=== PATIENT | male | born 1955 ===

== ENCOUNTER → 2017-06-05 | Outpatient (CLI) | payer OTHER ==
--- NOTE | 2017-06-05 16:22 | DIAGNOSTIC IMAGING REPORT ---
L FOOT MIN 3 VIEWS ROUTINE CLINICAL HISTORY: PAIN IN LEFT FOOT pain COMPARISON: None. DISCUSSION: Small old avulsion near the distal aspect fifth metatarsal. This is well-corticated. No evidence for acute bony pathology. Alignment is anatomic. Cortical margins are intact. There is no evidence for soft tissue swelling. IMPRESSION: No acute process. The above report was generated using voice recognition software. It may contain grammatical, syntax or spelling errors. Electronically signed by: Fareed Bran M.D. 06/05/2017 4:21 PM Dictated Date/Time: 06/05/2017 4:20 PM
== END | disposition home or self-care (01) ==
LOC: C.RAD 15:48
PROVIDERS: ATTEND Family Medicine
DX: M79.672 Pain in left foot (principal)